=== PATIENT | male | born 1990 | race Caucasian/White ===

== ENCOUNTER 2017-08-02 16:35 | Emergency (ER) | payer MEDICAID ==
--- NOTE | 2017-08-02 17:23 | EDPHY ---
H & P Stated Complaint: cough/congestion/hodges in chest with breathing Time Seen by Provider: 08/02/17 17:22 HPI/ROS: HPI: This is a 26-year-old male presents with Chief Complaint: cough/congestion/hodges in chest with breathing Location: Chest Quality: Congestion Duration: 3 days Signs and Symptoms: No fever, no chills, no sore throat, no neck stiffness, no chest pain, + nonproductive cough, no chest pain, no shortness of breath Timing: Sudden Severity: [id number] Context: Patient is currently in a senior living house, tobacco user, complains of nonproductive cough over the last 3 days with resultant chest discomfort when he coughs. Denies any fevers/chills/sore throat. Has not tried any over-the- counter medications. No history of asthma. Modifying Factors: None Comment: ROS: see HPI Constitutional: No fever, no chills, no weight loss Eyes: No blurred vision Respiratory: No shortness of breath, no cough Cardiovascular: No chest pain Gastrointestinal: No nausea, no vomiting, no diarrhea Genitourinary: No dysuria Extremities: No myalgias Neurologic: No weakness, no numbness Skin: No rashes Hematologic: No bruising, no bleeding MEDICAL/SURGICAL/SOCIAL HISTORY: Medical history: Generally healthy. Does not take any regular medications. Surgical history: Appendectomy, elbow surgery Social history: Currently in a senior living house CONSTITUTIONAL: Young adult white male, awake and alert, no obvious distress HEENT: Atraumatic and normocephalic, PERRL, EOMI. Tympanic membranes clear. Oropharynx clear, no exudate and moist pink mucosa. Airway patent. No lymphadenopathy. No meningismus. Cardiovascular: Normal S1/S2, regular rate, regular rhythm, without murmur rub or gallop. PULMONARY/CHEST: Symmetrical and nontender. Clear to auscultation bilaterally. Good air movement. No accessory muscle usage. ABDOMEN: Soft, nondistended, nontender, no rebound, no guarding, no peritoneal signs, no masses or organomegaly. No CVAT. EXTREMITIES: 2/2 pulses, no deformities, no clubbing, no cyanosis or edema. NEUROLOGICAL: no focal neuro deficits. GCS 15. SKIN: Warm and dry, no erythema. no rash. Good capillary refill. Source: Patient Exam Limitations: No limitations - Personal History Current Tetanus/Diphtheria Vaccine: Yes Tetanus Vaccine Date: 2007 - Medical/Surgical History Hx Asthma: No Hx Chronic Respiratory Disease: No Hx Diabetes: No Hx Cardiac Disease: No Hx Renal Disease: No Hx Cirrhosis: No Hx Alcoholism: No Hx HIV/AIDS: No Hx Splenectomy or Spleen Trauma: No Other PMH: appy/l elbow surg - Social History Smoking Status: Current every day smoker Constitutional: Initial Vital Signs Temperature (C) 36.8 C 08/02/17 16:38 Heart Rate 92 08/02/17 16:38 Respiratory Rate 18 08/02/17 16:38 Blood Pressure 98/69 L 08/02/17 16:38 O2 Sat (%) 95 08/02/17 16:38 O2 Delivery Mode Room Air Allergies/Adverse Reactions: No Known Allergies Allergy (Verified 08/02/17 16:38) Home Medications: Medication Instructions Recorded predniSONE [predniSONE TAPER] 10 mg PO DAILY 6 Days ea 08/02/17 Medical Decision Making - Diagnostics Imaging Results: Imaging Impressions Chest X-Ray 08/02/17 17:22 Impression: Circumscribed density in the left upper lobe, best seen on frontal view. Differential considerations included supposition of shadows versus cavitary nodule. Recommend repeat PA chest x-ray versus CT of the chest. Dr. Matehws discussed these findings and recommendations by telephone with Dr. Ant Preciado at 08/02/2017 17:57. Chest/Thorax CTA 08/02/17 17:59 Impression: 1. No visible pulmonary embolus. 2. Scattered small pulmonary nodules. Given the patient's smoking history, unenhanced low dose chest CT for follow up in 12 months is considered optional per Fleischner Society criteria. 3. No visible nodule in the area of interest on radiographs, which may have been related to artifact. Findings discussed with Ant Preciado M.D., on August 02, 2017 at 1941. ED Course/Re-evaluation: Afebrile and no systemic signs. No hypoxia/wheezing/fever/tachycardia Chest x-ray ordered and per my read shows left upper lobe opacity; CTA chest ordered for further evaluation per Radiology recommendation I-STAT reviewed labs and within normal limits Patient is low risk for pulmonary embolism Given p.o. prednisone 60 mg and ibuprofen with adequate relief 1845: Patient is adamant to be return to the senior living house prior to receiving the results of his CT scan. He is concerned that he is going to miss dinner. He is hemodynamically stable. He was advised to call the emergency room this evening to obtain the results. CTA chest shows no pulmonary embolism, Scattered small pulmonary nodules. Given the patient's smoking history, unenhanced low dose chest CT for follow up in 12 months is considered optional per Fleischner Society criteria. Differential Diagnosis: Shortness of breath including but not limited to pulmonary infectious process, upper respiratory infection, bronchitis. - Data Points Laboratory Results: 08/02/17 18:08 POC Hgb 15.6 gm/dL gm/dL (13.7-17.5) POC Hct 46 % % (40-51) POC Sodium 141 mEq/L mEq/L (134-144) POC Potassium 3.8 mEq/L mEq/L (3.3-5.0) POC Chloride 105 mEq/L mEq/L (97-110) POC BUN 12 mg/dL mg/dL (7-23) POC Creatinine 0.7 mg/dL mg/dL (0.7-1.3) POC Glucose 86 mg/dL mg/dL (70-100) Medications Given: Discontinued Medications Diphtheria/Tetanus/Acell Pertussis (Boostrix) 0.5 ml IM .ONCE ONE Stop: 08/02/17 17:36 Last Admin: 08/02/17 18:46 Dose: Not Given Ibuprofen (Motrin) 800 mg PO EDNOW ONE Stop: 08/02/17 17:51 Last Admin: 08/02/17 18:06 Dose: 800 mg Prednisone (Prednisone) 60 mg PO EDNOW ONE Stop: 08/02/17 17:51 Last Admin: 08/02/17 18:05 Dose: 60 mg Point of Care Test Results: 08/02/17 18:08 POC Sodium 141 POC Potassium 3.8 POC Chloride 105 POC BUN 12 POC Creatinine 0.7 POC Glucose 86 Departure - Departure Disposition: Home, Routine, Self-Care Clinical Impression: Viral bronchitis, Tobacco use Condition: Good Instructions: Acute Bronchitis (ED) Additional Instructions: Please call the emergency room this evening to receive the results of your CT scan. Given the your smoking history, unenhanced low dose chest CT for follow up in 12 months is considered optional per Fleischner Society criteria. Referrals: [facility],. [Clinic] - As per Instructions Stand Alone Forms: Work Excuse Prescriptions: predniSONE [predniSONE TAPER] 10 mg PO DAILY 6 Days ea
[2017-08-02] MEDS ORDERED: TDAP ADULT 0.5 ML INJ (BOOSTRIX) IM ONE (17:35)
[2017-08-02] MEDS ORDERED: IBUPROFEN 800 MG TAB PO ONE (17:50)
[2017-08-02] MEDS ORDERED: predniSONE 20 MG TAB PO ONE (17:50)
[2017-08-02] MEDS ORDERED: IOPAMIDOL (ISOVUE 370) 100 ML BTL IV ONE (18:16)
[2017-08-02 19:07] VITALS: BP 134/78; PULSE 77; RESP 16; TEMP 98.4; O2SAT 98
== END 2017-08-02 18:57 | disposition home or self-care (01) ==
DX: J20.8 Acute bronchitis due to other specified organisms (principal); F17.200 Nicotine dependence, unspecified, uncomplicated
CPT/HCPCS: 82947-QW; Q9967

== ENCOUNTER 2017-08-24 02:40 | Emergency (ER) | payer MEDICAID ==
--- NOTE | 2017-08-24 02:42 | EDPHY ---
H & P HPI/ROS: HPI CHIEF COMPLAINT: Medication refill HISTORY OF PRESENT ILLNESS: Patient is a very pleasant 26-year-old male, significant past medical history for PTSD and bipolar disorder he is out of his trazodone, Seroquel and Remeron. He is requesting trazodone for sleep. He denies wanting to hurt himself or anybody else. I have agreed to give him a limited amount of trazodone. He should follow up his primary care doctor for refill on his other medications. He has been out of these medications for months. Past Medical History: Bipolar disorder, PTSD, insomnia Past Surgical History: No recent surgery Social History: Denies daily use of drugs alcohol tobacco products. Residing in a long term house. Family History: Noncontributory ROS REVIEW OF SYSTEMS: A comprehensive 10 point review of systems is otherwise negative aside from elements mentioned in the history of present illness. Exam Constitutional appears well nontoxic triage nursing summary reviewed, vital signs reviewed, awake/alert. Eyes normal conjunctivae and sclera, EOMI, PERRLA. HENT normal inspection, atraumatic, moist mucus membranes, no epistaxis, neck supple/ no meningismus, no raccoon eyes. Respiratory clear to auscultation bilaterally, normal breath sounds, no respiratory distress, no wheezing. Cardiovascular rate normal, regular rhythm, no murmur, no edema, distal pulses normal. Gastrointestinal soft, non-tender, no rebound, no guarding, normal bowel sounds, no distension, no pulsatile mass. Genitourinary no CVA tenderness. Musculoskeletal no midline vertebral tenderness, full range of motion, no calf swelling, no tenderness of extremities, no meningismus, good pulses, neurovascularly intact. Skin pink, warm, & dry, no rash, skin atraumatic. Neurologic awake, alert and oriented x 3, AAOx3, moves all 4 extremities equally, motor intact, sensory intact, CN II-XII intact, normal cerebellar, normal vision, normal speech. Psychiatric normal mood/affect. Heme/Lymph/Immune no lymphadenopathy. Differential Diagnosis: Includes but is not limited to in a particular order, medication refill, need for psychiatric medications, requesting trazodone for sleep. Medical Decision Making: I have agreed to give him a dose of trazodone here in emergency room. And a limited prescription. Otherwise he should follow up with his primary care doctor for further refills of his other medications. He is agreeable for this. He denies want hurt himself or anybody else. Denies being depressed denies SI or HI. Source: Patient - Personal History Tetanus Vaccine Date: 2007 - Medical/Surgical History Hx Asthma: No Hx Chronic Respiratory Disease: No Hx Diabetes: No Hx Cardiac Disease: No Hx Renal Disease: No Hx Cirrhosis: No Hx Alcoholism: No Hx HIV/AIDS: No Hx Splenectomy or Spleen Trauma: No Other PMH: appy/l elbow surg - Social History Smoking Status: Current every day smoker Constitutional: Initial Vital Signs Temperature (C) 37 C 08/24/17 02:43 Heart Rate 108 H 08/24/17 02:43 Respiratory Rate 16 08/24/17 02:43 Blood Pressure 116/80 08/24/17 02:43 O2 Sat (%) 95 08/24/17 02:43 O2 Delivery Mode Room Air Allergies/Adverse Reactions: No Known Allergies Allergy (Verified 08/02/17 16:38) Home Medications: Medication Instructions Recorded predniSONE [predniSONE TAPER] 10 mg PO DAILY 6 Days ea 08/02/17 traZODone [traZODONE 100MG (*)] 100 mg PO HS #14 tab 08/24/17 traZODone [traZODONE 50MG (*)] 50 mg PO HS #1 tab 08/24/17 Departure - Departure Disposition: Home, Routine, Self-Care Clinical Impression: Medication refill Condition: Good Instructions: Medicine Refill (ED) Additional Instructions: 1. Please follow up with your primary care doctor. Referrals: NANDA BOWIE [Primary Care Provider] - As per Instructions Prescriptions: traZODone [traZODONE 100MG (*)] 100 mg PO HS #14 tab traZODone [traZODONE 50MG (*)] 50 mg PO HS #1 tab
[2017-08-24 02:45] VITALS: BP 116/80; PULSE 108; RESP 16; TEMP 98.6; O2SAT 95
[2017-08-24] MEDS ORDERED: traZODone 50 MG TAB PO ONE (02:51)
== END 2017-08-24 02:55 | disposition home or self-care (01) ==
DX: Z76.0 Encounter for issue of repeat prescription (principal); F17.200 Nicotine dependence, unspecified, uncomplicated